=== PATIENT | male | born 1960 | race Caucasian/White ===

== ENCOUNTER 2024-05-18 13:09 | Inpatient (IN) | payer MEDICARE, OTHER ==
[~2024-05-18] VITALS: Ht 182.9 cm; Wt 158.8 kg
[2024-05-18] MEDS ORDERED: ATOR20TA PO (13:48)
[2024-05-18] MEDS ORDERED: BENZ1TAB7 PO (13:48)
[2024-05-18] MEDS ORDERED: ARIP2TAB3 PO (13:48)
[2024-05-18] MEDS ORDERED: GLIM1TAB18 PO (13:49)
[2024-05-18] MEDS ORDERED: APIX5TAB PO (13:49)
[2024-05-18] MEDS ORDERED: DONE5TAB34 PO (13:49)
[2024-05-18] MEDS ORDERED: MEMA5TAB42 PO (13:51)
[2024-05-18] MEDS ORDERED: TRAZ-182 PO (13:51)
[2024-05-18] MEDS ORDERED: OXCA300T4 PO ×3 (13:51→13:54)
[2024-05-18] MEDS ORDERED: CYAN500T9 PO (13:54)
[2024-05-18] MEDS ORDERED: CHOL200059 PO (13:56)
[2024-05-18] MEDS ORDERED: MAGN400O6 PO (13:56)
[2024-05-18] MEDS ORDERED: MELA3TAB41 PO (13:56)
[2024-05-18] MEDS ORDERED: NYST60PO TOP (13:58)
[2024-05-18] MEDS ORDERED: HYDR-4384 PO (13:58)
[2024-05-18] MEDS ORDERED: POTASSIUM BICARBONATE/CIT AC 25 MEQ TABLET.EFF ONE (13:58)
[2024-05-18] MEDS ORDERED: MULT-594 PO (13:58)
[2024-05-18] MEDS ORDERED: MAGNESIUM SULFATE/D5W 100 ML ONE ×3 (13:59→16:20)
[2024-05-18] MEDS ORDERED: DILTIAZEM HCL 25 MG IV ONE (13:59)
[2024-05-18] MEDS ORDERED: SENN-261 PO (14:00)
[2024-05-18] MEDS ORDERED: NA P133E RC (14:00)
[2024-05-18] MEDS ORDERED: LIQUACEL976 ML PO (14:00)
[2024-05-18 14:24] LABS: BASOPHILS # (AUTO) 0.1 K/UL (0.0-0.2); BASOPHILS % (AUTO) 0.4 % (0.0-2.0); EOSINOPHILS # (AUTO) 0.1 K/uL (0.0-0.7); EOSINOPHILS % (AUTO) 0.8 % (0.0-7.0); HEMATOCRIT 40.6 % (36.7-47.1); HEMOGLOBIN 12.9 g/dL (12.5-16.3); LYMPHOCYTES # (AUTO) 1.2 K/uL (0.8-4.8); LYMPHOCYTES % (AUTO) 9.2 % (20.5-51.5); MEAN CORPUSCULAR HEMOGLOBIN 28.6 uug (23.8-33.4); MEAN CORPUSCULAR HGB CONC 32 g/dL (32.5-36.3); MEAN CORPUSCULAR VOLUME 89.8 fL (73.0-96.2); MONOCYTES # (AUTO) 0.8 K/uL (0.1-1.30); MONOCYTES % (AUTO) 6.1 % (0.0-11.0); NEUTROPHILS % (AUTO) 83.5 % (38.5-71.5); PLATELET COUNT (AUTO) 237 K/uL (152-348); RED BLOOD CELL COUNT(AUTO) 4.52 MIL/uL (4.06-5.63); RED CELL DISTRIBUTION WIDTH 14.7 % (12.1-16.2); WHITE BLOOD COUNT (AUTO) 13.2 K/uL (3.6-10.2)
[2024-05-18 14:25] LABS: DIFFERENTIAL COMMENT 1
[2024-05-18 14:26] LABS: MAGNESIUM 2.3 mg/dL (1.8-2.4)
[2024-05-18 14:31] LABS: CALCIUM 9.2 mg/dL (8.5-10.1); CARBON DIOXIDE 35 mmol/L (21-32); CHLORIDE 97 mmol/L (98-107); CREATININE 0.8 mg/dL (0.6-1.3); GLUCOSE 142 mg/dL (74-106); POTASSIUM 4.9 mmol/L (3.5-5.1); SODIUM SERUM 137 mmol/L (136-145); UREA NITROGEN, BLOOD 15 mg/dL (7-18)
[2024-05-18 14:41] LABS: NT-PRO BNP 1356 pg/mL (0-125)
[2024-05-18] MEDS: POTASSIUM BICARBONATE/CIT AC 25 MEQ TABLET.EFF PO ONE (14:44)
[2024-05-18] MEDS: MAGNESIUM SULFATE/D5W 100 ML IV SCH (14:44)
[2024-05-18] MEDS: DILTIAZEM HCL 25 MG IV IV ONE (14:44)
[2024-05-18] MEDS ORDERED: ONDANSETRON 4 MG/2 ML VIAL ONE (14:48)
[2024-05-18 14:49] LABS: THYROID STIMULATING HORMONE 1.616 mIU/mL (0.358-3.740)
[2024-05-18] MEDS ORDERED: HYDROMORPHONE 1 MG/1 ML DISP.SYRIN ONE (14:49)
[2024-05-18] MEDS: HYDROMORPHONE 1 MG/1 ML DISP.SYRIN IV ONE (14:56)
[2024-05-18] MEDS: ONDANSETRON 4 MG/2 ML VIAL IV ONE (14:56)
[2024-05-18] MEDS: FUROSEMIDE 40 MG/4 ML VIAL IV ONE (17:00)
[2024-05-18] MEDS ORDERED: FUROSEMIDE 40 MG/4 ML VIAL ONE (17:05)
[2024-05-18] MEDS ORDERED: IV NORMAL SALINE 250 ML IV ONE (17:14)
[2024-05-18] MEDS ORDERED: SWABABLE VALVE TRANSFER SET EA MC ONE (17:14)
[2024-05-18] MEDS ORDERED: IOHEXOL 350 100 ML INFUS..BTL ONE (17:14)
[2024-05-18] MEDS ORDERED: HALOPERIDOL LACTATE 5 MG/1 ML VIAL ONE (20:14)
[2024-05-18] MEDS ORDERED: ONDANSETRON 4 MG/2 ML VIAL IV PRN (20:15)
[2024-05-18] MEDS ORDERED: REMEDY ESSENTIAL ZINC PASTE 113 GM TP PRN (20:15)
[2024-05-18] MEDS: HALOPERIDOL LACTATE 5 MG/1 ML VIAL IV ONE (20:20)
[2024-05-18] MEDS ORDERED: HYDROCODONE/APAP 5-325MG TABLET ONE (20:35)
[2024-05-18] MEDS: HYDROCODONE/APAP 5-325MG TABLET PO SCH (20:40)
[2024-05-18] MEDS: DONEPEZIL 5 MG TABLET PO SCH (21:00)
[2024-05-18] MEDS: TRAZODONE 50 MG TABLET PO SCH (21:00)
[2024-05-18] MEDS: VANCOMYCIN IV 1,000 MG in IV NORMAL SALINE 250 ML IV ONE (21:00)
[2024-05-18] MEDS: MELATONIN 3 MG TABLET PO SCH (21:00)
[2024-05-18] MEDS ORDERED: APIXABAN 5 MG TABLET PO SCH (21:45)
[2024-05-18] MEDS ORDERED: DEXTROSE 50% 50 ML DISP.SYRIN IV PRN (21:45)
[2024-05-18] MEDS ORDERED: ENOXAPARIN SODIUM 100 MG/ML DISP.SYRIN SQ SCH (21:45)
[2024-05-18] MEDS ORDERED: PIPERACILLIN/TAZO 4.5 GM VIAL IV ONE (21:51)
[2024-05-18] MEDS ORDERED: VANCOMYCIN IV 200 ML ONE (21:52)
[2024-05-18 21:59] LABS: ABG BASE EXCESS 8.4 mmol/L (-2.0-2.0); ABG PCO2 99.3 mmHg (35.0-48.0); ABG PH 7.223 (7.340-7.440); ABG PO2 250.2 mmHg (75.0-100.0); ABG SITE RIGHT RADIAL; ABG TOTAL HEMOGLOBIN 13.7 G/dL (14.0-18.0); AaDO2 99.4 mmHg; COHb 1.3 % (0.0-3.9); MetHb 0.3 % (0.0-1.5); O2Hb 97.9 % (94.0-97.0)
[2024-05-18 22:00] VITALS: BP 133/77; TEMP 98.9; O2SAT 100
[2024-05-18] MEDS ORDERED: PIPERACILLIN SODIUM/TAZOBACTAM 4.5 G in IV DEXTROSE 5% 50 ML IV SCH (22:00)
[2024-05-18] MEDS: PIPERACILLIN SODIUM/TAZOBACTAM 4.5 G in IV DEXTROSE 5% 50 ML IV NR (22:20)
[2024-05-18 23:00] VITALS: BP 140/98; O2SAT 96
[2024-05-18] MEDS ORDERED: ENOXAPARIN SODIUM 40 MG/0.4 ML DISP.SYRIN SQ SCH (23:15)
[2024-05-19] VITALS (23 sets, daily range): BP systolic 97–183; BP diastolic 70–171; TEMP 98.3–99.5; O2SAT 82–99
[2024-05-19] MEDS: ENOXAPARIN SODIUM 40 MG/0.4 ML DISP.SYRIN SQ ONE (00:04)
[2024-05-19 01:56] LABS: ABG BASE EXCESS 10.6 mmol/L (-2.0-2.0); ABG HCO3 39.5 mmol/L (22.0-26.0); ABG PCO2 74.9 mmHg (35.0-48.0); ABG PO2 80.1 mmHg (75.0-100.0); ABG SITE RIGHT RADIAL; ABG TOTAL HEMOGLOBIN 13.5 G/dL (14.0-18.0); AaDO2 94.6 mmHg; COHb 1.1 % (0.0-3.9); MetHb 0.2 % (0.0-1.5); O2Hb 94.5 % (94.0-97.0)
[2024-05-19] MEDS ORDERED: PIPERACILLIN/TAZO 2.25 GM VIAL ONE (02:12)
[2024-05-19] MEDS: HYDROCODONE/APAP 5-325MG TABLET PO PRN (03:45)
[2024-05-19 04:55] LABS: BASOPHILS # (AUTO) 0.1 K/UL (0.0-0.2); BASOPHILS % (AUTO) 0.7 % (0.0-2.0); EOSINOPHILS # (AUTO) 0.1 K/uL (0.0-0.7); EOSINOPHILS % (AUTO) 0.7 % (0.0-7.0); HEMATOCRIT 36.1 % (36.7-47.1); LYMPHOCYTES # (AUTO) 0.8 K/uL (0.8-4.8); LYMPHOCYTES % (AUTO) 8.2 % (20.5-51.5); MEAN CORPUSCULAR HEMOGLOBIN 29.8 uug (23.8-33.4); MEAN CORPUSCULAR HGB CONC 33 g/dL (32.5-36.3); MEAN CORPUSCULAR VOLUME 89.5 fL (73.0-96.2); MONOCYTES # (AUTO) 0.6 K/uL (0.1-1.30); MONOCYTES % (AUTO) 6.3 % (0.0-11.0); NEUTROPHILS # (AUTO) 8.5 K/uL (1.8-8.9); NEUTROPHILS % (AUTO) 84.1 % (38.5-71.5); PLATELET COUNT (AUTO) 187 K/uL (152-348); RED BLOOD CELL COUNT(AUTO) 4.03 MIL/uL (4.06-5.63); RED CELL DISTRIBUTION WIDTH 14.7 % (12.1-16.2); WHITE BLOOD COUNT (AUTO) 10.1 K/uL (3.6-10.2)
[2024-05-19 05:22] LABS: DIFFERENTIAL COMMENT 1
[2024-05-19 05:28] LABS: CALCIUM 8.7 mg/dL (8.5-10.1); CREATININE 0.8 mg/dL (0.6-1.3); MAGNESIUM 2.4 mg/dL (1.8-2.4); PHOSPHOROUS 3.5 mg/dL (2.5-4.9); POTASSIUM 4.8 mmol/L (3.5-5.1)
[2024-05-19] MEDS: FUROSEMIDE 40 MG/4 ML VIAL IV SCH (06:31)
[2024-05-19 07:02] LABS: ABG BASE EXCESS 6.9 mmol/L (-2.0-2.0); ABG HCO3 34.8 mmol/L (22.0-26.0); ABG PCO2 65.8 mmHg (35.0-48.0); ABG PH 7.341 (7.340-7.440); ABG PO2 81.1 mmHg (75.0-100.0); ABG SITE RIGHT RADIAL; ABG TOTAL HEMOGLOBIN 13.1 G/dL (14.0-18.0); COHb 1.4 % (0.0-3.9); MetHb 0.1 % (0.0-1.5); O2Hb 94.3 % (94.0-97.0)
[2024-05-19] MEDS: BLOOD SUGAR DIAGNOSTIC 1 EACH STRIP VI SCH (07:53)
[2024-05-19] MEDS: INSULIN REGULAR, HUMAN 300 UNIT/3 ML VIAL SQ PRN (07:58)
[2024-05-19] MEDS: GLIMEPIRIDE 2 MG TABLET PO SCH (08:41)
[2024-05-19] MEDS: VANCOMYCIN IV 2,000 MG in IV DEXTROSE 5% 500 ML IV SCH (08:42)
[2024-05-19] MEDS: DILTIAZEM HCL IV 125 MG in IV NORMAL SALINE 100 ML IV PRN (08:58)
[2024-05-19] MEDS: BENZTROPINE MESYLATE 1 MG TABLET PO SCH (09:00)
[2024-05-19] MEDS: ARIPIPRAZOLE 2 MG TABLET PO SCH (09:00)
[2024-05-19] MEDS: ATORVASTATIN 20 MG TABLET PO SCH (09:00)
[2024-05-19] MEDS: MEMANTINE HCL 5 MG TABLET PO SCH (09:00)
[2024-05-19] MEDS ORDERED: GLIMEPIRIDE 1 MG PO SCH (09:00)
[2024-05-19] MEDS: APIXABAN 5 MG TABLET PO SCH (09:00)
[2024-05-19] MEDS: MORPHINE SULFATE 2 MG/1 ML DISP.SYRIN IV PRN (09:48)
[2024-05-19] MEDS ORDERED: ACET325T53 PO (10:27)
[2024-05-19] MEDS ORDERED: DOCU-141 PO (10:27)
[2024-05-19] MEDS ORDERED: HYDR-4209 PO (10:27)
[2024-05-19] MEDS ORDERED: BISA10SU61 RC (10:27)
[2024-05-19] MEDS: PIPERACILLIN SODIUM/TAZOBACTAM 3.375 G in IV DEXTROSE 5% 100 ML IV SCH (14:19)
[2024-05-19] MEDS: TRIAMCINOLONE ACET 0.1% CREAM 15 GM TUBE TOP SCH (17:53)
[2024-05-19] MEDS ORDERED: TRAZODONE 50 MG TABLET PO SCH (21:00)
[2024-05-19] MEDS: NYSTATIN CREAM 30 GM TUBE TOP SCH (21:10)
[2024-05-19] MEDS: TRAZODONE 50 MG TABLET PO SCH (21:15)
[2024-05-20] VITALS (28 sets, daily range): BP systolic 85–128; BP diastolic 55–88; TEMP 97.8–98.8; O2SAT 94–100
[2024-05-20 05:32] LABS: ABG BASE EXCESS 11.5 mmol/L (-2.0-2.0); ABG HCO3 39.1 mmol/L (22.0-26.0); ABG PH 7.391 (7.340-7.440); ABG PO2 129.3 mmHg (75.0-100.0); ABG SITE RIGHT RADIAL; ABG TOTAL HEMOGLOBIN 13.2 G/dL (14.0-18.0); AaDO2 98.4 mmHg; COHb 0.6 % (0.0-3.9); MetHb 0.2 % (0.0-1.5); O2Hb 97.5 % (94.0-97.0)
[2024-05-20 05:46] LABS: ALBUMIN 2.8 g/dL (3.4-5.0); BILIRUBIN,TOTAL 0.6 mg/dL (0.2-1.0); CALCIUM 8.6 mg/dL (8.5-10.1); CREATININE 1.2 mg/dL (0.6-1.3); MAGNESIUM 2.4 mg/dL (1.8-2.4); PHOSPHOROUS 4.2 mg/dL (2.5-4.9); TOTAL PROTEIN, SERUM 6.8 g/dL (6.4-8.2)
[2024-05-20 05:48] LABS: BASOPHILS % (AUTO) 0.2 % (0.0-2.0); EOSINOPHILS # (AUTO) 0.5 K/uL (0.0-0.7); EOSINOPHILS % (AUTO) 3.9 % (0.0-7.0); HEMATOCRIT 35.9 % (36.7-47.1); HEMOGLOBIN 11.8 g/dL (12.5-16.3); LYMPHOCYTES # (AUTO) 0.8 K/uL (0.8-4.8); LYMPHOCYTES % (AUTO) 6.6 % (20.5-51.5); MEAN CORPUSCULAR HGB CONC 33 g/dL (32.5-36.3); MEAN CORPUSCULAR VOLUME 88.5 fL (73.0-96.2); MONOCYTES # (AUTO) 0.8 K/uL (0.1-1.30); MONOCYTES % (AUTO) 7.1 % (0.0-11.0); NEUTROPHILS # (AUTO) 9.4 K/uL (1.8-8.9); NEUTROPHILS % (AUTO) 82.2 % (38.5-71.5); PLATELET COUNT (AUTO) 195 K/uL (152-348); RED BLOOD CELL COUNT(AUTO) 4.05 MIL/uL (4.06-5.63); RED CELL DISTRIBUTION WIDTH 14.8 % (12.1-16.2); WHITE BLOOD COUNT (AUTO) 11.5 K/uL (3.6-10.2)
[2024-05-20 06:17] LABS: DIFFERENTIAL COMMENT 1
[2024-05-20] MEDS: DILTIAZEM HCL 30 MG TABLET PO SCH (09:42)
[2024-05-20] MEDS: OXCARBAZEPINE 300 MG TABLET PO SCH (13:18)
[2024-05-20] MEDS: VANCOMYCIN IV 1,250 MG in IV DEXTROSE 5% 250 ML IV ONE (20:03)
[2024-05-21] VITALS (23 sets, daily range): BP systolic 94–131; BP diastolic 49–99; TEMP 97.9–98.8; O2SAT 94–99
[2024-05-21 05:12] LABS: BASOPHILS % (AUTO) 0.4 % (0.0-2.0); EOSINOPHILS # (AUTO) 0.5 K/uL (0.0-0.7); EOSINOPHILS % (AUTO) 4.9 % (0.0-7.0); HEMATOCRIT 33.9 % (36.7-47.1); HEMOGLOBIN 11.2 g/dL (12.5-16.3); LYMPHOCYTES # (AUTO) 0.8 K/uL (0.8-4.8); LYMPHOCYTES % (AUTO) 8.1 % (20.5-51.5); MEAN CORPUSCULAR HEMOGLOBIN 29.3 uug (23.8-33.4); MEAN CORPUSCULAR HGB CONC 33 g/dL (32.5-36.3); MEAN CORPUSCULAR VOLUME 88.7 fL (73.0-96.2); MONOCYTES # (AUTO) 0.6 K/uL (0.1-1.30); MONOCYTES % (AUTO) 6.3 % (0.0-11.0); NEUTROPHILS # (AUTO) 7.8 K/uL (1.8-8.9); NEUTROPHILS % (AUTO) 80.3 % (38.5-71.5); PLATELET COUNT (AUTO) 196 K/uL (152-348); RED BLOOD CELL COUNT(AUTO) 3.82 MIL/uL (4.06-5.63); WHITE BLOOD COUNT (AUTO) 9.8 K/uL (3.6-10.2)
[2024-05-21 05:18] LABS: DIFFERENTIAL COMMENT 1
[2024-05-21 05:42] LABS: CALCIUM 8.3 mg/dL (8.5-10.1); CREATININE 2.1 mg/dL (0.6-1.3); MAGNESIUM 2.5 mg/dL (1.8-2.4); PHOSPHOROUS 4.8 mg/dL (2.5-4.9); POTASSIUM 3.6 mmol/L (3.5-5.1)
[2024-05-21] MEDS: IV NS 1000 ML 1,000 ML IV PRN (13:28)
[2024-05-21] MEDS ORDERED: ATORVASTATIN 20 MG TABLET PO SCH (18:00)
[2024-05-21] MEDS: ATORVASTATIN 10 MG TABLET PO SCH (20:18)
[2024-05-21] MEDS: INSULIN REGULAR, HUMAN 300 UNITS/3 ML VIAL SQ PRN (20:29)
[2024-05-21] MEDS ORDERED: OXCARBAZEPINE 150 MG TABLET ONE (22:23)
[2024-05-22] VITALS (8 sets, daily range): BP systolic 98–116; BP diastolic 46–78; TEMP 97.8–98.4; O2SAT 94–98
[2024-05-22 07:22] LABS: BASOPHILS % (AUTO) 0.4 % (0.0-2.0); EOSINOPHILS # (AUTO) 0.4 K/uL (0.0-0.7); EOSINOPHILS % (AUTO) 4.1 % (0.0-7.0); HEMATOCRIT 33.3 % (36.7-47.1); HEMOGLOBIN 10.8 g/dL (12.5-16.3); LYMPHOCYTES # (AUTO) 0.8 K/uL (0.8-4.8); LYMPHOCYTES % (AUTO) 8.8 % (20.5-51.5); MEAN CORPUSCULAR HEMOGLOBIN 28.7 uug (23.8-33.4); MEAN CORPUSCULAR HGB CONC 32 g/dL (32.5-36.3); MEAN CORPUSCULAR VOLUME 88.8 fL (73.0-96.2); MONOCYTES # (AUTO) 0.6 K/uL (0.1-1.30); MONOCYTES % (AUTO) 6.8 % (0.0-11.0); NEUTROPHILS # (AUTO) 6.9 K/uL (1.8-8.9); NEUTROPHILS % (AUTO) 79.9 % (38.5-71.5); PLATELET COUNT (AUTO) 225 K/uL (152-348); RED BLOOD CELL COUNT(AUTO) 3.75 MIL/uL (4.06-5.63); RED CELL DISTRIBUTION WIDTH 14.8 % (12.1-16.2); WHITE BLOOD COUNT (AUTO) 8.6 K/uL (3.6-10.2)
[2024-05-22 07:30] LABS: DIFFERENTIAL COMMENT 1
[2024-05-22 07:35] LABS: ABG HCO3 37.4 mmol/L (22.0-26.0); ABG PCO2 58.1 mmHg (35.0-48.0); ABG PH 7.426 (7.340-7.440); ABG PO2 108.2 mmHg (75.0-100.0); ABG SITE LEFT RADIAL; ABG TOTAL HEMOGLOBIN 11.8 G/dL (14.0-18.0); AaDO2 97.9 mmHg; COHb 0.6 % (0.0-3.9); MetHb 0.1 % (0.0-1.5); O2Hb 97.3 % (94.0-97.0)
[2024-05-22 07:44] LABS: CALCIUM 8.4 mg/dL (8.5-10.1); CREATININE 2.3 mg/dL (0.6-1.3); MAGNESIUM 2.8 mg/dL (1.8-2.4); POTASSIUM 3.9 mmol/L (3.5-5.1)
[2024-05-22] MEDS: DILTIAZEM HCL CD 120 MG CAP.SR.24H PO SCH (09:00)
[2024-05-22] MEDS: MAGNESIUM HYDROXIDE 30 ML LIQUID UDC PO PRN (11:22)
[2024-05-22] MEDS ORDERED: DILTIAZEM HCL 30 MG TABLET PO SCH (12:00)
[2024-05-22] MEDS ORDERED: DILTIAZEM HCL 60 MG TABLET PO SCH (12:00)
[2024-05-22] MEDS: HYDROMORPHONE 1 MG/1 ML DISP.SYRIN IV PRN (13:37)
[2024-05-23] VITALS (7 sets, daily range): BP systolic 96–133; BP diastolic 61–74; TEMP 97–99.7; O2SAT 95–98
[2024-05-23 10:02] LABS: BASOPHILS % (AUTO) 0.5 % (0.0-2.0); EOSINOPHILS # (AUTO) 0.1 K/uL (0.0-0.7); EOSINOPHILS % (AUTO) 1.5 % (0.0-7.0); HEMATOCRIT 31.7 % (36.7-47.1); HEMOGLOBIN 10.3 g/dL (12.5-16.3); LYMPHOCYTES # (AUTO) 0.7 K/uL (0.8-4.8); LYMPHOCYTES % (AUTO) 7.3 % (20.5-51.5); MEAN CORPUSCULAR HEMOGLOBIN 28.9 uug (23.8-33.4); MEAN CORPUSCULAR HGB CONC 32 g/dL (32.5-36.3); MEAN CORPUSCULAR VOLUME 89.4 fL (73.0-96.2); MONOCYTES # (AUTO) 0.5 K/uL (0.1-1.30); MONOCYTES % (AUTO) 5.4 % (0.0-11.0); NEUTROPHILS # (AUTO) 8.5 K/uL (1.8-8.9); NEUTROPHILS % (AUTO) 85.3 % (38.5-71.5); PLATELET COUNT (AUTO) 203 K/uL (152-348); RED BLOOD CELL COUNT(AUTO) 3.55 MIL/uL (4.06-5.63); RED CELL DISTRIBUTION WIDTH 14.9 % (12.1-16.2); WHITE BLOOD COUNT (AUTO) 9.9 K/uL (3.6-10.2)
[2024-05-23 10:06] LABS: DIFFERENTIAL COMMENT 1
[2024-05-23 10:15] LABS: ALBUMIN 2.3 g/dL (3.4-5.0); BILIRUBIN,TOTAL 0.3 mg/dL (0.2-1.0); CREATININE 2.1 mg/dL (0.6-1.3); MAGNESIUM 2.8 mg/dL (1.8-2.4); PHOSPHOROUS 2.9 mg/dL (2.5-4.9); POTASSIUM 4.3 mmol/L (3.5-5.1); TOTAL PROTEIN, SERUM 6.3 g/dL (6.4-8.2)
[2024-05-23] MEDS: ACETAMINOPHEN 325 MG TABLET PO PRN (20:54)
[2024-05-24] VITALS (7 sets, daily range): BP systolic 121–136; BP diastolic 45–66; TEMP 98–98.7; O2SAT 95–100
[2024-05-24] MEDS: ALBUTEROL SULFATE 1.25 MG/3 ML NEBU NEB PRN (03:09)
[2024-05-24 07:29] LABS: BASOPHILS % (AUTO) 0.4 % (0.0-2.0); EOSINOPHILS # (AUTO) 0.2 K/uL (0.0-0.7); EOSINOPHILS % (AUTO) 1.9 % (0.0-7.0); HEMATOCRIT 32.8 % (36.7-47.1); HEMOGLOBIN 10.7 g/dL (12.5-16.3); LYMPHOCYTES # (AUTO) 0.7 K/uL (0.8-4.8); LYMPHOCYTES % (AUTO) 7.8 % (20.5-51.5); MEAN CORPUSCULAR HEMOGLOBIN 29.1 uug (23.8-33.4); MEAN CORPUSCULAR HGB CONC 33 g/dL (32.5-36.3); MEAN CORPUSCULAR VOLUME 89.5 fL (73.0-96.2); MONOCYTES # (AUTO) 0.7 K/uL (0.1-1.30); MONOCYTES % (AUTO) 6.8 % (0.0-11.0); NEUTROPHILS # (AUTO) 7.9 K/uL (1.8-8.9); NEUTROPHILS % (AUTO) 83.1 % (38.5-71.5); PLATELET COUNT (AUTO) 209 K/uL (152-348); RED BLOOD CELL COUNT(AUTO) 3.67 MIL/uL (4.06-5.63); RED CELL DISTRIBUTION WIDTH 15.1 % (12.1-16.2); WHITE BLOOD COUNT (AUTO) 9.5 K/uL (3.6-10.2)
[2024-05-24 07:37] LABS: CALCIUM 8.6 mg/dL (8.5-10.1); CREATININE 2.1 mg/dL (0.6-1.3); DIFFERENTIAL COMMENT 1; MAGNESIUM 2.9 mg/dL (1.8-2.4); PHOSPHOROUS 3.8 mg/dL (2.5-4.9); POTASSIUM 4.7 mmol/L (3.5-5.1)
[2024-05-24] MEDS ORDERED: MULT-1045 PO (12:24)
[2024-05-24] MEDS ORDERED: ATOR10TA PO (12:24)
[2024-05-24] MEDS ORDERED: DILT120C87 PO (12:24)
[2024-05-24] MEDS ORDERED: APIX5TAB PO (12:24)
[2024-05-24] MEDS ORDERED: NYST15CR TOP (12:24)
[2024-05-24] MEDS ORDERED: ALBU1.25 NEB (12:24)
[2024-05-24] MEDS ORDERED: OXYC15TA82 PO (12:25)
== END 2024-05-24 15:25 | DRG 308 ==
LOC: ER 13:09 → CCU 20:22 → TELE3 05-21 16:05 → MEDSURG3 05-24 11:55
PROVIDERS: ADMIT Internal Medicine; ATTEND Internal Medicine
PROC: 5A09357 Assistance with Respiratory Ventilation, Less than 24 Consecutive Hours, Continuous Positive Airway Pressure (ICD-10-PCS; principal; 2024-05-18)
PROC: 02HV33Z Insertion of Infusion Device into Superior Vena Cava, Percutaneous Approach (ICD-10-PCS; 2024-05-18)
PROC: 2W3QX1Z Immobilization of Right Lower Leg using Splint (ICD-10-PCS; 2024-05-18)
DX: I48.20 Chronic atrial fibrillation, unspecified (principal); I50.43 Acute on chronic combined systolic (congestive) and diastolic (congestive) heart failure; J96.21 Acute and chronic respiratory failure with hypoxia; J96.22 Acute and chronic respiratory failure with hypercapnia; Z68.42 Body mass index [BMI] 45.0-49.9, adult; D68.59 Other primary thrombophilia; L03.115 Cellulitis of right lower limb; F01.54 Vascular dementia, unspecified severity, with anxiety; F01.53 Vascular dementia, unspecified severity, with mood disturbance; E66.2 Morbid (severe) obesity with alveolar hypoventilation; J98.11 Atelectasis; G93.40 Encephalopathy, unspecified; N17.9 Acute kidney failure, unspecified; T50.8X5A Adverse effect of diagnostic agents, initial encounter; Y92.238 Other place in hospital as the place of occurrence of the external cause; I11.0 Hypertensive heart disease with heart failure; I48.92 Unspecified atrial flutter; I48.91 Unspecified atrial fibrillation; S82.891A Other fracture of right lower leg, initial encounter for closed fracture; W06.XXXA Fall from bed, initial encounter; Y92.122 Bedroom in nursing home as the place of occurrence of the external cause; I49.5 Sick sinus syndrome; B36.9 Superficial mycosis, unspecified; M15.9 Polyosteoarthritis, unspecified; G89.29 Other chronic pain; Z74.09 Other reduced mobility; D64.9 Anemia, unspecified; Z79.01 Long term (current) use of anticoagulants; I25.10 Atherosclerotic heart disease of native coronary artery without angina pectoris; F25.9 Schizoaffective disorder, unspecified; Z71.3 Dietary counseling and surveillance; K21.9 Gastro-esophageal reflux disease without esophagitis; I48.0 Paroxysmal atrial fibrillation; E11.65 Type 2 diabetes mellitus with hyperglycemia
CPT/HCPCS: 36415; 36600; 71045; 71275; 73560; 73600; 82803; 83735; 84100; 84443; 84484; 85025; 87040; 93005; 93307; 94640; 94660; 94760; 99082-TC; A4606; A4663; G0378; J1170; J1630; J1650; J1815; J1940; J2270; J2405; J2543; J3370; J3475; J3490; J7040; J7050; J7060; Q9967

== ENCOUNTER 2025-07-17 14:33 | Inpatient (IN) | payer MEDICARE, OTHER ==
[~2025-07-17] VITALS: Ht 170.2 cm; Wt 144.7 kg
[~2025-07-17 14:33] MED LIST: ACET325T53 PO; ALBU1.25 NEB; APIX5TAB PO; ARIP2TAB3 PO; ATOR10TA PO; BENZ1TAB7 PO; BISA10SU61 RC; CHOL200059 PO; CYAN500T9 PO; DILT120C87 PO; DOCU-141 PO; DONE5TAB34 PO; GLIM1TAB18 PO; HYDR-4384 PO; LIQUACEL976 ML PO; MAGN400O6 PO; MELA3TAB41 PO; MEMA5TAB42 PO; MULT-1045 PO; MULT-594 PO; NA P133E RC; NYST15CR TOP; OXCA300T4 PO; OXYC15TA82 PO; SENN-261 PO; TRAZ-182 PO
[2025-07-17 14:48] VITALS: BP 137/72
[2025-07-17 15:06] LABS: PLATELET COUNT (AUTO) 189 K/uL (152-348); RED BLOOD CELL COUNT(AUTO) 4.26 MIL/uL (4.06-5.63); RED CELL DISTRIBUTION WIDTH 15.1 % (12.1-16.2); WHITE BLOOD COUNT (AUTO) 7.5 K/uL (3.6-10.2)
[2025-07-17 15:14] LABS: CREATININE 0.9 mg/dL (0.6-1.3); SODIUM SERUM 143.0 mmol/L (136-145); UREA NITROGEN, BLOOD 11.0 mg/dL (7-18)
[2025-07-17] MEDS ORDERED: ARIP5TAB10 PO (15:16)
[2025-07-17] MEDS ORDERED: SEMA1PEN SQ (15:16)
[2025-07-17] MEDS ORDERED: ARIP20TA20 PO (15:16)
[2025-07-17] MEDS ORDERED: OXYC-133 PO (15:16)
[2025-07-17] MEDS ORDERED: OXYC-128 PO (15:16)
[2025-07-17] MEDS ORDERED: ONDA4TAB5 PO (15:16)
[2025-07-17] MEDS ORDERED: FURO-152 PO (15:16)
[2025-07-17] MEDS ORDERED: CALC-261 PO (15:16)
[2025-07-17] MEDS ORDERED: DILT240T12 PO (15:16)
[2025-07-17 15:28] LABS: ASPARTATE AMINOTRANSFERASE 10.0 U/L (15-37); TOTAL PROTEIN, SERUM 6.5 g/dL (6.4-8.2)
[2025-07-17] MEDS ORDERED: INSU100V28 SUBCUT (15:29)
[2025-07-17] MEDS ORDERED: DILT120C93 PO (17:39)
[2025-07-17] MEDS ORDERED: ALBUTEROL SULFATE 1.25 MG/3 ML NEBU NEB PRN (20:00)
[2025-07-17] MEDS ORDERED: OXYCODONE/APAP 5-325 MG TABLET PO PRN ×2 (20:00→20:30)
[2025-07-17] MEDS ORDERED: ONDANSETRON 4 MG/2 ML VIAL IV PRN (20:00)
[2025-07-17] MEDS ORDERED: IPRATROPIUM BROMIDE 0.5 MG/2.5 ML NEBU NEB PRN (20:15)
[2025-07-17] MEDS ORDERED: DEXTROSE 50% 50 ML DISP.SYRIN IV PRN (20:15)
[2025-07-17 21:00] VITALS: BP 119/62; TEMP 97.8; O2SAT 97
[2025-07-17] MEDS: ARIPIPRAZOLE 10 MG TABLET PO SCH (21:06)
[2025-07-17] MEDS: TRAZODONE 50 MG TABLET PO SCH (21:06)
[2025-07-17] MEDS: ATORVASTATIN 10 MG TABLET PO SCH (21:06)
[2025-07-17] MEDS: SENNOSIDES 1 TABLET PO SCH (21:06)
[2025-07-17] MEDS: MELATONIN 3 MG TABLET PO SCH (21:07)
[2025-07-17] MEDS: DONEPEZIL 5 MG TABLET PO SCH (21:07)
[2025-07-17] MEDS: APIXABAN 5 MG TABLET PO SCH (21:08)
[2025-07-17] MEDS ORDERED: OXCARBAZEPINE 150 MG TABLET ONE ×2 (21:21→21:39)
[2025-07-17] MEDS: BLOOD SUGAR DIAGNOSTIC 1 EACH STRIP VI SCH (21:33)
[2025-07-17] MEDS: INSULIN REGULAR, HUMAN 1000 UNIT/10 ML VIAL SQ PRN (21:45)
[2025-07-17] MEDS: OXCARBAZEPINE 300 MG TABLET PO SCH (21:51)
[2025-07-18 04:45] VITALS: BP 106/57; TEMP 98.4; O2SAT 98
[2025-07-18 06:11] LABS: PLATELET COUNT (AUTO) 178 K/uL (152-348); RED BLOOD CELL COUNT(AUTO) 4.19 MIL/uL (4.06-5.63); RED CELL DISTRIBUTION WIDTH 15.2 % (12.1-16.2); WHITE BLOOD COUNT (AUTO) 6.8 K/uL (3.6-10.2)
[2025-07-18] MEDS: PANTOPRAZOLE SODIUM 40 MG TABLET.DR PO SCH (06:29)
[2025-07-18 06:31] LABS: ASPARTATE AMINOTRANSFERASE < 5 U/L (15-37); CREATININE 0.7 mg/dL (0.6-1.3); SODIUM SERUM 141 mmol/L (136-145); TOTAL PROTEIN, SERUM 6.1 g/dL (6.4-8.2); UREA NITROGEN, BLOOD 13 mg/dL (7-18)
[2025-07-18 06:32] LABS: IRON, SERUM 60 ug/dL (50-175)
[2025-07-18 06:35] LABS: ABG BASE EXCESS 10.6 mmol/L (-2.0-3.0); ABG HCO3 39.2 mmol/L (21.0-28.0); ABG PCO2 74.1 mmHg (35.0-48.0); ABG PH 7.341 (7.350-7.450); ABG PO2 99.3 mmHg (83.0-108.0); ABG SITE LEFT BRACHIAL; ABG TOTAL HEMOGLOBIN 12.5 G/dL (13.5-17.5); AaDO2 96.9 mmHg; FIO2 32.0 %; FLOW, BLOOD GAS 3.00 L/min (0.00-30.00)
[2025-07-18 07:40] VITALS: BP 115/67; TEMP 98.2; O2SAT 98
[2025-07-18] MEDS: DILTIAZEM HCL CD 240 MG CAP.SR.24H PO SCH (09:03)
[2025-07-18] MEDS: GLIMEPIRIDE 2 MG TABLET PO SCH (09:17)
[2025-07-18] MEDS: ARIPIPRAZOLE 5 MG TABLET PO SCH (09:19)
[2025-07-18] MEDS: FUROSEMIDE 20 MG TABLET PO SCH (09:19)
[2025-07-18] MEDS: MEMANTINE HCL 5 MG TABLET PO SCH (09:19)
[2025-07-18] MEDS: BENZTROPINE MESYLATE 1 MG TABLET PO SCH (09:19)
[2025-07-18] MEDS: CALCIUM CARB/VITAMIN D 500MG-200UNITS TABLET PO SCH (09:19)
[2025-07-18] MEDS: CYANOCOBALAMIN 1,000 MCG TABLET PO SCH (09:21)
[2025-07-18] MEDS: DOCUSATE SODIUM 100 MG CAPSULE PO SCH (09:22)
[2025-07-18 11:01] VITALS: BP 120/79; TEMP 98.4; O2SAT 98
[2025-07-18 11:40] VITALS: O2SAT 96
[2025-07-18] MEDS: NYSTATIN CREAM 30 GM TUBE TOP SCH (12:11)
[2025-07-18 15:13] VITALS: BP 105/64; TEMP 97.6; O2SAT 96
[2025-07-18 19:00] VITALS: BP 115/67; TEMP 98.5; O2SAT 96
[2025-07-19] VITALS (8 sets, daily range): BP systolic 92–126; BP diastolic 57–67; TEMP 97.9–98.6; O2SAT 95–100
[2025-07-19] MEDS: OXCARBAZEPINE 300 MG TABLET PO SCH (13:42)
[2025-07-19] MEDS: ARIPIPRAZOLE 10 MG TABLET PO SCH (21:12)
[2025-07-20 06:00] VITALS: BP 121/76; TEMP 98.2; O2SAT 98
[2025-07-20 06:40] LABS: PLATELET COUNT (AUTO) 182 K/uL (152-348); RED BLOOD CELL COUNT(AUTO) 4.35 MIL/uL (4.06-5.63); RED CELL DISTRIBUTION WIDTH 15.4 % (12.1-16.2); WHITE BLOOD COUNT (AUTO) 8.4 K/uL (3.6-10.2)
[2025-07-20 07:18] LABS: CREATININE 0.5 mg/dL (0.6-1.3); SODIUM SERUM 137 mmol/L (136-145); UREA NITROGEN, BLOOD 14 mg/dL (7-18)
[2025-07-20 07:35] VITALS: O2SAT 97
[2025-07-20] MEDS ORDERED: ARIPIPRAZOLE 5 MG TABLET PO SCH (09:00)
[2025-07-20] MEDS: ARIPIPRAZOLE 2 MG TABLET PO SCH (09:38)
[2025-07-20] MEDS ORDERED: OXCA300T4 PO (11:29)
[2025-07-20] MEDS ORDERED: IPRA0.2S6 NEB (11:29)
[2025-07-20] MEDS ORDERED: MEMA5TAB42 PO (11:29)
[2025-07-20] MEDS ORDERED: ARIP10TA9 PO (11:29)
[2025-07-20] MEDS ORDERED: NYST15CR TOP (11:29)
[2025-07-20] MEDS ORDERED: PANT40TA49 PO (11:29)
[2025-07-20] MEDS ORDERED: MELA3TAB41 PO (11:29)
[2025-07-20] MEDS ORDERED: SENN-175 PO (11:29)
[2025-07-20] MEDS ORDERED: ARIP2TAB3 PO (11:29)
[2025-07-20] MEDS ORDERED: TRAZ-252 PO (11:29)
[2025-07-20 11:39] VITALS: BP 105/70; TEMP 98.8; O2SAT 97
[2025-07-20 16:00] VITALS: BP 109/62; TEMP 98.8; O2SAT 97
== END 2025-07-20 18:30 | DRG 205 ==
LOC: ER 14:33 → TELE3 17:17 → MEDSURG3 07-19 09:54
PROVIDERS: ADMIT Internal Medicine; ATTEND Internal Medicine
DX: E66.2 Morbid (severe) obesity with alveolar hypoventilation (principal); I50.33 Acute on chronic diastolic (congestive) heart failure; J96.21 Acute and chronic respiratory failure with hypoxia; J96.22 Acute and chronic respiratory failure with hypercapnia; Z68.43 Body mass index [BMI] 50.0-59.9, adult; E44.0 Moderate protein-calorie malnutrition; I48.92 Unspecified atrial flutter; I48.20 Chronic atrial fibrillation, unspecified; F01.A4 Vascular dementia, mild, with anxiety; F01.A3 Vascular dementia, mild, with mood disturbance; D68.59 Other primary thrombophilia; I11.0 Hypertensive heart disease with heart failure; Z71.3 Dietary counseling and surveillance; Z99.81 Dependence on supplemental oxygen; B36.9 Superficial mycosis, unspecified; F14.21 Cocaine dependence, in remission; F15.21 Other stimulant dependence, in remission; F25.9 Schizoaffective disorder, unspecified; Z91.198 Patient's noncompliance with other medical treatment and regimen for other reason; R25.1 Tremor, unspecified; I25.10 Atherosclerotic heart disease of native coronary artery without angina pectoris; G89.29 Other chronic pain; M15.9 Polyosteoarthritis, unspecified; E11.9 Type 2 diabetes mellitus without complications; E78.5 Hyperlipidemia, unspecified; Z74.01 Bed confinement status; Z79.4 Long term (current) use of insulin; Z79.84 Long term (current) use of oral hypoglycemic drugs; Z79.899 Other long term (current) drug therapy; Z86.73 Personal history of transient ischemic attack (TIA), and cerebral infarction without residual deficits; Z95.0 Presence of cardiac pacemaker; Z79.01 Long term (current) use of anticoagulants; E88.09 Other disorders of plasma-protein metabolism, not elsewhere classified; D64.9 Anemia, unspecified
CPT/HCPCS: 36415; 36600; 70450; 71045; 83550; 83605; 83735; 83921; 84100; 84443; 84484; 85025; 85730; 87040; 93307; 94760; A4606; A4663; G0378; J1815